=== PATIENT | male | born 1960 | race Caucasian/White ===

== ENCOUNTER → 2025-02-23 | Outpatient (CLI) | payer BC, SELFPAY ==
[2025-02-23 12:56] LABS: Basophils # (Auto) 0.1 Thou/mm3 (0.0-0.2); Basophils % (Auto) 1 % (0-2.5); Eosinophils # (Auto) 0.3 Thou/mm3 (0.0-0.5); Eosinophils % (Auto) 2 % (0-10); Hematocrit 33.2 % (41.0-53.0); Hemoglobin 11.2 g/dL (13.5-16.0); Immature Granulocytes Auto 0.05 Thou/mm3 (0.00-0.00); Lymphocytes # (Auto) 2.2 Thou/mm3 (1.0-4.8); Lymphocytes % (Auto) 16 % (10-50); Mean Corpuscular HGB Conc 33.7 g/dl (31.0-37.0); Mean Corpuscular Hemoglobin 29.6 pg (25.0-35.0); Mean Corpuscular Volume 88 fL (80-100); Monocytes # (Auto) 1.1 Thou/mm3 (0.0-0.8); Monocytes % (Auto) 8 % (0-12); Neutrophils # (Auto) 10.5 Thou/mm3 (1.8-7.7); Neutrophils % (Auto) 74 % (37-80); Nucleated Red Blood Cell # 0.00 Thou/mm3 (0.00-0.00); Nucleated Red Blood Cell % 0 /100 WBC (0); Platelet Count 439 Thou/mm3 (140-440); RDW Standard Deviation 41.6 fL (35.1-43.9); Red Blood Count 3.78 Miln/mm3 (4.50-5.90); White Blood Count 14.3 Thou/mm3 (3.8-10.6)
[2025-02-23 13:29] LABS: Alanine Aminotransferase 15 U/L (10-49); Albumin, Serum 4.5 gm/dL (3.4-4.8); Albumin/Globulin Ratio 1.3 (1.2-2.2); Alkaline Phosphatase 61 U/L (46-116); Anion Gap 10 (7-16); Aspartate Amino Transferase 17 U/L (0-34); BUN/Creatinine Ratio 23 Ratio (12-20); Bilirubin,Total 0.4 mg/dL (0.3-1.2); Blood Urea Nitrogen 23 mg/dL (9-23); Calcium 9.5 mg/dL (8.3-10.6); Calcium (Corrected) 9.5 mg/dL (8.5-10.1); Carbon Dioxide 23.2 mMol/L (20.0-31.0); Chloride 105 mMol/L (98-107); Creatinine (Component) 1.0 mg/dL (0.6-1.3); Globulin 3.6 gm/dL (2.3-3.5); Glucose 100 mg/dL (74-106); Osmolality,Calculated 279 (275-295); Potassium 4.2 mMol/L (3.4-5.1); Sodium 138 mMol/L (136-145); Total Protein 8.1 gm/dL (5.7-8.2); Uric Acid 4.3 mg/dL (3.7-9.2); eGFR > 60 See Note
== END | disposition home or self-care (01) ==
LOC: COPL 11:17
PROVIDERS: PCP Family Medicine; Referring Provider Family Medicine; Visit Provider Family Medicine
DX: R22.32 Localized swelling, mass and lump, left upper limb (principal); E79.0 Hyperuricemia without signs of inflammatory arthritis and tophaceous disease
CPT/HCPCS: 36415; 80053; 84550; 85025

== ENCOUNTER 2025-03-16 14:26 | Emergency (ER) | payer BC, SELFPAY ==
[2025-03-16 14:27] VITALS: BMI 33.7
[2025-03-16 15:09] VITALS: BP 143/89; PULSE 81; RESP 20; TEMP 36.9; O2SAT 97
--- NOTE | 2025-03-16 15:19 | XR_ITS ---
Examination: Hand, left 2 views Technique: AP lateral left hand 2 views Date and time: March 16, 2025, CT 04 hours INDICATIONS: Left hand pain this week. FINDINGS: Advanced osteoarthritis first carpometacarpal joint No acute fracture No erosive arthritis No opaque foreign body IMPRESSION: Advanced osteoarthritis first carpometacarpal joint
--- NOTE | 2025-03-16 15:21 | EDNOTE_ITS ---
<Statement entered by Sara Gaytan MD - 03/17/25 07:09> As co-signing physician, I was present and available for consult prn. I concur with the plan and care as documented by the midlevel provider. 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 Onset (ago): hour(s) Extremity Location: Left: hand Place: work Patient tetanus UTD: No Context: accidental Associated symptoms: pain Related Data Home Medications ?Medication ?Instructions ?Recorded ?Confirmed acetaminophen 300 mg-codeine 30 mg 1 tab PO BID 03/07/20 tablet (Tylenol-Codeine #3) Held on 04/03/24. Instructions: Resume on 04/04/24. albuterol sulfate 90 mcg/actuation 1 puff inhalation B ID 03/07/20 03/07/20 aerosol inhaler ibuprofen 800 mg tablet 800 mg PO BID 03/07/2003/07 lisinopril 10 mg tablet 10 mg PO QDAY 03/07/2003/08 ascorbic acid (vitamin C) 1,000 mg 1,000 mg PO QDAY 03/08/20 tablet (Vitamin C) cyclobenzaprine 10 mg tablet 10 mg PO HS 03/08/2002/10 fexofenadine 180 mg tablet 180 mg PO QDAY 03/08/20 (Josephine Allergy) green tea leaf extract (Green Tea 2 cap PO BID 0 03/08/20 capsule) Previous Rx's ?Medication ?Instructions ?Recorded hydrocodone 5 mg-acetaminophen 325 1 tab PO Q6H PRN pa in #30 tabs 03/08/20 mg tablet Held on 04/03/24. Instructions: Resume on 04/04/24. ibuprofen 800 mg tablet 800 mg PO Q8H PRN pain #60 t abs 03/08/20 omeprazole 40 mg capsule,delayed 40 mg PO QDAY 90 days #30 caps 04/03/24 release Allergies Allergy/AdvReac Type Severity Reaction Status Date / Time No Known Allergies Allergy Verified 03/16/25 14:29 Review of Systems Constitutional Constitutional: Reports system reviewed and no additional complaints, except as documented Eyes Eyes: Reports system reviewed and no additional complaints, except as documented, Denies dry eyes, Denies exophthalmos and Reports floaters Cardiovascular Cardiovascular: Denies chest pain with activity and Denies claudication ED Exam General Limitations: Present no limitations General appearance: Present alert and in no apparent distress Head Head exam: Present atraumatic Eye Eye exam: Present normal appearance and EOMI ENT ENT exam: Present normal exam, normal oropharynx and mucous membranes moist Neck Neck exam: Present normal inspection, full ROM and trachea midline Chest Chest inspection: Present normal inspection and symmetric chest wall rise Extremities Exam Extremities exam: Present normal inspection and full ROM Back Exam Back exam: Present normal inspection and full ROM Neurological Exam Neurological exam: Present alert and oriented X3 Psychiatric Psychiatric exam: Present normal affect and normal mood Skin Skin exam: Present other (There are 2 lacerations to the left hand, laceration #1 is 3 cm and is well-approximated. Laceration #2 is at the left index finger and this would be the lateral aspect, it is 1.5 cm. The digits of the left hand all retain full range of motion and there is no apparent neurofocal deficit present.) Course Quality Measures none Orders Category Date Time Status Dress wound [Wound Care] NOW Care 03/16/25 16:15 Active XR hand LT 2V Stat Exams 03/16/25 15:19 Taken Lidocaine 1% 20 ml [Xylocaine 1% 20 ML] Med 03/16/25 16:15 Discontinued 20 ml INFL X1 ONE TET,DIP/PERT AC (Adult)-Tdap [Boostrix Adult (Tdap) Med 03/16/25 17:01 Once Vacc] 0.5 ml IMI .ONCE ONE Vital Signs Vital signs: Vital Signs Temperature 98.5 F 03/16/25 15:09 Pulse Rate 81 03/16/25 15:09 Respiratory Rate 20 03/16/25 15:09 Blood Pressure 143/89 H 03/16/25 15:09 Pulse Oximetry (%) 97 03/16/25 15:09 Oxygen Delivery Method Room Air 03/16/25 15:09 Pulse ox is 97% room air PROCEDURES: Laceration Laceration 1: Site: hand (Proximal to the snuffbox) Side (If applicable): left Size (cm): 3 Description: linear Local Anesthetic: lidocaine 1% Amount of anesthesia used (mL): 12 Pre-repair: wound explored and irrigated extensively Skin layer closed with: nylon Suture size (cm): 4-0 Number of sutures: 5 Technique: simple, interrupted Laceration 2: Site: hand (Left index finger) Size (cm): 1.5 Description: linear Local Anesthetic: lidocaine 1% Amount of anesthesia used (mL): 10 Suture size (cm): 4-0 Number of sutures: 3 Technique: simple, interrupted Wound / Laceration MDM Narrative MDM Narrative:: The wounds to the left hand have been sutured. Patient will have a tetanus Tdap. Patient will have a 2-day wound check and sutures are out in 10 days. If signs of infection he is to return here or to primary care physician otherwise patient is discharged in no apparent distress. Patient is to keep wound clean and dry. The wound will be dressed prior to departure. 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) Evaluation data The following diagnostics were reviewed and interpreted by me:: radiology ex am(s) (Radiology demonstrates no apparent foreign body, no apparent bony deformity, there is no soft tissue swelling present.) Lab and/or radiology exams considered but not ordered:: NA Interpretation Summary: NA Medications / Prescriptions Medications or Prescriptions considered but not ordered:: NA Medication administrations:: Medication Administration History Diphtheria/Tetanus/Acell Pertussis (Diphth,Pertuss(Acell),Tet Vac 0.5 Ml Syr- Adult) 0.5 ml IMi .ONCE ONE Stop: 03/16/25 17:02 Discontinued Medications Lidocaine HCl (Lidocaine Hcl 1% 20 Ml Vial) 20 ml INFL X1 ONE Stop: 03/16/25 16:16 Last Admin: 03/16/25 16:58 Dose: 20 ml Documented By: NA Consultations Consultation(s) initiated? (list below): No Consultation #1 (Physician, Specialty, Details): NA Diagnosis Wound Differential Diagnosis: laceration, abscess, abrasion and avulsion of skin Most likely diagnosis given after review of the tests above:: NA Admission Indicated Admission indicated?: not indicated Admission Request Was there a request for admission?: No Disposition Plan Disposition Plan: Discharge Discharge Attestation Discharge Attestation: The patient and all family members were given an opportunity to ask questions and understood the discharge instructions. Discharge instructions specifically effects, indications for sooner follow up or return to the emergency department, and the expected course of current diagnosis. Patient condition: Stable Discharge Plan Plan Patient Disposition: HOME (Self Care) Discharge Disposition comment: Patient discharged in no apparent distress Patient condition on transfer: Stable Prescriptions/Referrals Prescriptions/Med Rec: No Action ibuprofen 800 mg Tablet 800 mg PO BID acetaminophen-codeine [Tylenol-Codeine #3] 300-30 mg Tablet 1 tab PO BID lisinopril 10 mg Tablet 10 mg PO QDAY albuterol sulfate 90 mcg/actuation Hfa Aerosol Inhaler 1 puff INHALATION BID cyclobenzaprine 10 mg Tablet 10 mg PO HS ascorbic acid (vitamin C) [Vitamin C] 1,000 mg Tablet 1,000 mg PO QDAY fexofenadine [Josephine Allergy] 180 mg Tablet 180 mg PO QDAY Green Tea Capsule 2 cap PO BID hydrocodone-acetaminophen 5-325 mg tablet 1 tab PO Q6H MDD 4 tabs PRN (Reason: pain) Qty: 30 0RF ibuprofen 800 mg tablet 800 mg PO Q8H MDD 3 tabs PRN (Reason: pain) Qty: 60 0RF omeprazole 40 mg Capsule,Delayed Release(Dr/Ec) 40 mg PO QDAY 90 Days Qty: 30 2RF Problem List Clinical Impression: Laceration of finger of left hand, Laceration Patient/Caregiver Discharge Instructions Discharge Activity: activity as tolerated Other Activity Instructions:: Keep clean and dry Print Language: Belarusian Stand Alone Forms: Marylu Award Info., Patient Portal Info Letter 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
[2025-03-16] MEDS: LIDOCAINE HCL 1% 20 ML VIAL INFL (16:58)
[2025-03-16] MEDS: DIPHTH,PERTUSS(ACELL),TET VAC 0.5 ML SYR- ADULT IMi (17:13)
== END 2025-03-16 17:37 | disposition home or self-care (01) ==
LOC: SERX 16:38
PROVIDERS: Emergency Provider Emergency Medicine; PCP Family Medicine
DX: S61.412A Laceration without foreign body of left hand, initial encounter (principal); S61.012A Laceration without foreign body of left thumb without damage to nail, initial encounter; W29.8XXA Contact with other powered hand tools and household machinery, initial encounter; Z23 Encounter for immunization
CPT/HCPCS: 12004; 73120; 90471; 90715; 99283; J3490

== ENCOUNTER → 2025-04-15 | Outpatient (CLI) | payer BC, SELFPAY ==
--- NOTE | 2025-04-15 13:37 | XR_ITS ---
Examination: Abdomen sonogram, complete Date and time of exam: April 15, 2025 1407 hours but indications: Right upper abdominal pain beginning one week ago. Technique: Multiple real-time grayscale transabdominal sonographic images of the abdomen have been obtained. Findings: Contracted gallbladder. No gallstones. Gallbladder wall 0.2 cm edema Common bile duct 0.3 cm Pancreatic head 2.6 cm Aorta not enlarged. 21.3 cm fatty infiltration Normal hepatopedal portal venous oh Patent IVC Right kidney 11.5 cm cortex 1.1 Left kidney 12.6 cm cortex 1.2 cm Moderate renal scar formation Spleen 10.7 cm IMPRESSION: Normal gallbladder No bowel duct Moderate hepatomegaly fatty infiltration Moderate bilateral renal scar formation
== END | disposition home or self-care (01) ==
PROVIDERS: PCP Family Medicine; Referring Provider Family Medicine; Visit Provider Family Medicine
DX: K76.0 Fatty (change of) liver, not elsewhere classified (principal); N28.89 Other specified disorders of kidney and ureter
CPT/HCPCS: 76700

== ENCOUNTER → 2025-05-25 | Outpatient (CLI) | payer BC, SELFPAY ==
[2025-05-25 11:01] LABS: Alanine Aminotransferase 23 U/L (10-49); Albumin, Serum 4.6 gm/dL (3.4-4.8); Alkaline Phosphatase 62 U/L (46-116); Aspartate Amino Transferase 21 U/L (0-34); Bilirubin,Direct 0.1 mg/dL (0.0-0.3); Bilirubin,Total 0.4 mg/dL (0.3-1.2); Cardiac Risk Estimate 3.8 RATIO (4.0-6.7); Cholesterol 152 mg/dL (132-200); Glucose 96 mg/dL (74-106); HDL Cholesterol 40 mg/dL (40-60); LDL Cholesterol,Calculated 79 mg/dL (0-130); Total Protein 7.9 gm/dL (5.7-8.2); Triglycerides 164 mg/dL (30-150)
== END | disposition home or self-care (01) ==
LOC: COPL 08:10
PROVIDERS: PCP Family Medicine; Referring Provider Family Medicine; Visit Provider Family Medicine
DX: K76.0 Fatty (change of) liver, not elsewhere classified (principal); Z13.220 Encounter for screening for lipoid disorders
CPT/HCPCS: 36415; 80061; 80076; 82947